=== PATIENT | female | born 1965 | race Caucasian/White ===

== ENCOUNTER 2023-07-11 15:30 | Outpatient (CLI) | payer OTHER | END 2023-07-11 15:31 | disposition home or self-care (01) | LOC: CSHLAB 15:30 | PROVIDERS: ATTEND Obstetrics & Gynecology | DX: Z01.818 Encounter for other preprocedural examination (principal); N95.0 Postmenopausal bleeding | CPT/HCPCS: 80048; 84703; 85027; 86850; 86900; 86901; 93005; 93010 ==

== ENCOUNTER 2023-07-13 08:30 | Day surgery (SDC) | payer OTHER ==
[2023-07-11 15:47] VITALS: BMI 23.1
[2023-07-11 16:47] LABS: Hematocrit 38.3 % (34.9-44.5); Hemoglobin 12.8 g/dL (12.0-15.5); Mean Corpuscular HGB CONC 33.4 g/dL (32.0-36.0); Mean Corpuscular Hemoglobin 32.7 pg (27.0-33.0); Mean Corpuscular Volume 97.7 fl (81.6-98.3); Mean Platelet Volume 11.1 fl (7.4-10.4); Platelet Count 205 10x3/uL (150-450); RBC Distribution Width 11.8 % (11.5-14.5); Red Blood Cell (RBC) Count 3.92 10x6/uL (3.90-5.03); White Blood Cell (WBC) Count 4.2 10x3/uL (3.5-10.5)
[2023-07-11 17:04] LABS: BHCG - Serum Negative (NEGATIVE); Pregs Control Background? CLEAR/WHITE (CLR/WHITE); Pregs Control Bar Appear? YES (CONTROL BAR)
[2023-07-11 17:08] LABS: Anion Gap 15 mmol/L (10-20); BUN (Urea Nitrogen) 9 mg/dL (9.8-20.1); Calc. Creatinine Clearance 0 mL/min (70-130); Calcium 9.2 mg/dL (7.8-10.44); Carbon Dioxide 25 mmol/L (22-29); Chloride 105 mmol/L (98-107); Estimated GFR 81; Glucose 98 mg/dL (70-105); Potassium 4.1 mmol/L (3.5-5.1); Sodium 141 mmol/L (136-145)
[2023-07-13] MEDS ORDERED: PROPOFOL 20 ML ONE (09:33)
[2023-07-13] MEDS ORDERED: Dexamethasone 4 mg/ml Vial ONE ×2 (09:33→10:10)
[2023-07-13] MEDS ORDERED: Ondansetron PF 4 MG/2 ML Vial ONE ×2 (09:33→10:31)
[2023-07-13] MEDS ORDERED: Lidocaine 2% PF 5 ML VIAL ONE (09:33)
[2023-07-13] MEDS ORDERED: CEFAZOLIN 2 GM VIAL ONE (09:56)
[2023-07-13] MEDS ORDERED: Ketorolac Tromethamine 30 MG/ML VIAL ONE (10:11)
== END 2023-07-13 11:45 | disposition home or self-care (01) ==
LOC: CSHSDC 08:30
PROVIDERS: ATTEND Obstetrics & Gynecology
PROC: 0UDB8ZX Extraction of Endometrium, Via Natural or Artificial Opening Endoscopic, Diagnostic (ICD-10-PCS; principal; 2023-07-13)
DX: N95.0 Postmenopausal bleeding (principal); N95.2 Postmenopausal atrophic vaginitis; D05.10 Intraductal carcinoma in situ of unspecified breast; Z17.0 Estrogen receptor positive status [ER+]; Z79.899 Other long term (current) drug therapy
CPT/HCPCS: 36415; 80048; 84703; 85027; 86850; 86900; 86901; 88305; J1100; J1885; J2001; J2405; J2704

== ENCOUNTER 2024-02-28 08:29 | Outpatient (CLI) | payer OTHER | END 2024-02-28 08:30 | disposition home or self-care (01) | LOC: CSHULT 08:29 | PROVIDERS: ATTEND Surgery | DX: D05.12 Intraductal carcinoma in situ of left breast (principal) ==